=== PATIENT | female | born 1950 | race Caucasian/White ===

== ENCOUNTER → 2016-12-10 | Outpatient (CLI) | payer MEDICARE, OTHER ==
[~2016-12-10] MED LIST: BYSTOLIC5 MG PO; COQ-10100 MG PO; FISH OIL 1,0001 EAC1 PO; GLUCOSAMINE1000 MG PO; HM COMPLETE WO1 EACH PO; MAGNESIUM250 M1 PO; MUCINEX D ER T1 EACH PO; NORCO 5-325 TA1 EACH PO; PRAVACHOL20 MG PO; PROAIR HFA8.5 GM INH; TURMERIC500 MG PO
--- NOTE | 2016-12-10 09:45 | NUR ---
[facility] with [facility] in [facility]. Introduced self and role of nurse navigator. Navigator brochure given. Permission received for follow up call tomorrow.
--- NOTE | 2016-12-11 14:35 | NUR ---
Called patient for post breast biopsy follow up call. Patient doing well. Minimal discomfort, no swelling, or drainage. Very impressed with [facility] staff.
== END | disposition disaster alternative care site (69) ==
LOC: GPOC 12-06 15:00 → GBCOE 09:26 → GPOC 10:00 → GBCOE 10:00 → GPOC 15:00
PROC: 0H9T3ZX Drainage of Right Breast, Percutaneous Approach, Diagnostic (ICD-10-PCS; principal; 2016-12-10)
DX: R92.0 Mammographic microcalcification found on diagnostic imaging of breast (principal); N63 Unspecified lump in breast
CPT/HCPCS: J7050

== ENCOUNTER → 2017-01-29 | Day surgery (SDC) | payer MEDICARE, OTHER ==
[~2017-01-29] VITALS: Ht 162.6 cm; Wt 57.8 kg
--- NOTE | ~2017-01-29 | OR ---
PATIENT'S NAME: WILVER XIE [facility] AGE: 66 Y [address] 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 POSTOPERATIVE DIAGNOSIS: Right breast upper outer quadrant spiculated nodule. PROCEDURE: A wire-directed right breast lumpectomy. ANESTHESIA: IV sedation with 18 mL of 1:1 mixture of 0.5% Marcaine with epinephrine/1% Xylocaine. SPECIMEN: Right breast tissue with wire and radiographic evidence of a targeted lesion within the specimen. INDICATION: The patient is a 66-year-old young lady, referred for evaluation of abnormal mammogram of the right breast. Upper outer quadrant revealed a spiculated nodule. Ultrasound showed to be irregular hypoechoic mass measuring 10 x 10 x 7 mm. We discussed core-needle biopsy. The patient underwent a core-needle biopsy and returned no malignant features, but after our discussion, the patient wished to proceed with excision of that region for 100% certainty. DESCRIPTION OF PROCEDURE: After informed consent and preop wire localization per Radiology of the right breast, the patient was taken to the operating room and IV sedation was performed. We prepped and draped the wire in the right breast into a sterile field between the 9 and 11 o'clock position in the upper outer quadrant. We made a curvilinear incision after injection of local anesthetic. We carried down into the breast parenchyma. We identified the wire and placed Allis clamp across the wire and the entry into the fibrocystic or solid nodule region. We then sharply went around this palpable mass and apparently adipose tissue. We did the excision and sent the specimen down to Radiology where they confirmed we got our targeted lesion within our central specimen. We cauterized the wound for hemostasis. We injected additional local anesthetic, closed the subcutaneous tissue with 3-0 Vicryl and the skin closed with subcuticular 4-0 Vicryl. Steri-Strips and sterile dressings applied. The patient tolerated the procedure well and was transferred to the recovery room in stable condition. PATIENT'S NAME: WILVER XIE [facility] AGE: 66 Y [address] ROOM: [place] [address] LOCATION: [facility] ADMIT DATE: 01/29/2017 OR/Procedure Report DISCHARGE DATE: FAMILY PHYSICIAN: Sara Musa MD ATTENDING PHYSICIAN: Antonio Jaramillo ANTONIO JARAMILLO MD WTS/modl /[id number] d: 02/07/17 1030 t: 02/26/17 1609, OPERATIVE SUMMARY
== END ==
LOC: GOPD 01-23
PROC: 0HBT0ZZ Excision of Right Breast, Open Approach (ICD-10-PCS; principal; 2017-01-29)
DX: N60.11 Diffuse cystic mastopathy of right breast (principal); R92.0 Mammographic microcalcification found on diagnostic imaging of breast; I10 Essential (primary) hypertension; E78.00 Pure hypercholesterolemia, unspecified; J45.909 Unspecified asthma, uncomplicated; M19.90 Unspecified osteoarthritis, unspecified site; Z90.710 Acquired absence of both cervix and uterus; Z79.899 Other long term (current) drug therapy; Z88.2 Allergy status to sulfonamides; Z88.8 Allergy status to other drugs, medicaments and biological substances
CPT/HCPCS: J0690; J1100; J2001; J2405; J7120